=== PATIENT | male | born 1950 | race Hispanic/Latino ===

== ENCOUNTER 2020-07-25 15:03 | Inpatient (IN) | payer MEDICARE ==
[~2020-07-25] VITALS: Ht 170.2 cm; Wt 79.8 kg
[2020-07-25] MEDS ORDERED: ASPIRIN 81 MG CHEW TAB PO ONE (15:15)
[2020-07-25] MEDS ORDERED: HEPARIN SOD (PORCINE) 1000 UNIT/ML SDV ONE (15:45)
[2020-07-25 16:26] LABS: BASOPHILS # (AUTO) 0.1 (0.0-0.1); BASOPHILS % 0.5 % (0.0-1.0); EOSINOPHILS # (AUTO) 0.2 (0.0-0.4); EOSINOPHILS % 1.9 % (0.0-6.0); HEMOGLOBIN 10.1 g/dL (14.0-18.0); LYMPHOCYTES # (AUTO) 0.9 (1.0-3.2); LYMPHOCYTES % 9.6 % (18.0-39.1); MEAN CORPUSCULAR HEMOGLOBIN 31.3 pg (28-32); MEAN CORPUSCULAR HGB CONC 32.6 g/dL (31-35); MONOCYTES % 10.4 % (4.4-11.3); NEUTROPHILS # (AUTO) 7.3 (2.1-6.9); NEUTROPHILS % 76.9 % (38.7-80.0); PLATELET COUNT 192 x10e3/uL (140-360); RED BLOOD COUNT 3.23 x10e6/uL (4.3-5.7); RED CELL DISTRIBUTION WIDTH 13.2 % (11.7-14.4)
[2020-07-25 16:30] LABS: INR 0.9; PROTHROMBIN TIME 12.7 seconds (11.9-14.5)
[2020-07-25] MEDS ORDERED: CLONIDINE HCL 0.2 MG TAB PO ONE (16:30)
[2020-07-25 16:42] LABS: CREATINE KINASE MB 5.5 ng/mL (0-5.0)
[2020-07-25 16:55] LABS: ALBUMIN 2.4 g/dL (3.5-5.0); ALBUMIN/GLOBULIN RATIO 0.7 (0.8-2.0); ANION GAP 16.8 mmol/L (8-16); CREATININE, SERUM 7.27 mg/dL (0.72-1.25); POTASSIUM 3.8 mmol/L (3.5-5.1)
[2020-07-25 16:56] LABS: CALCIUM 6.8 mg/dL (8.4-10.2)
[2020-07-25] MEDS ORDERED: METOPROLOL SUCC50 MG PO (17:15)
[2020-07-25] MEDS ORDERED: LISINOPRIL40 MG PO (17:15)
[2020-07-25] MEDS ORDERED: AMLODIPINE BESY10 MG PO (17:15)
[2020-07-25] MEDS ORDERED: ATORVASTATIN CA80 MG PO (17:15)
[2020-07-25] MEDS ORDERED: FUROSEMIDE20 MG PO (17:15)
[2020-07-25 17:45] VITALS: BP 139/73
[2020-07-25 19:40] VITALS: BP 175/78
[2020-07-26] VITALS (8 sets, daily range): BP systolic 146–181; BP diastolic 62–82
[2020-07-26 05:47] LABS: BASOPHILS # (AUTO) 0.1 (0.0-0.1); BASOPHILS % 0.7 % (0.0-1.0); EOSINOPHILS # (AUTO) 0.2 (0.0-0.4); HEMATOCRIT 27.2 % (38.2-49.6); HEMOGLOBIN 8.7 g/dL (14.0-18.0); LYMPHOCYTES # (AUTO) 1.2 (1.0-3.2); LYMPHOCYTES % 13.6 % (18.0-39.1); MEAN CORPUSCULAR HEMOGLOBIN 31.3 pg (28-32); MEAN CORPUSCULAR VOLUME 97.8 fL (81-99); MONOCYTES % 11.8 % (4.4-11.3); NEUTROPHILS # (AUTO) 6.2 (2.1-6.9); NEUTROPHILS % 71.3 % (38.7-80.0); PLATELET COUNT 159 x10e3/uL (140-360); RED BLOOD COUNT 2.78 x10e6/uL (4.3-5.7); RED CELL DISTRIBUTION WIDTH 13.2 % (11.7-14.4)
[2020-07-26] MEDS: HYDRALAZINE HCL 20 MG/ML VIAL IV PRN (06:00)
[2020-07-26 06:13] LABS: ALBUMIN/GLOBULIN RATIO 0.7 (0.8-2.0); ANION GAP 15.1 mmol/L (8-16); CALCIUM 7.2 mg/dL (8.4-10.2); CREATININE, SERUM 7.49 mg/dL (0.72-1.25); POTASSIUM 4.1 mmol/L (3.5-5.1)
[2020-07-26 06:36] LABS: CREATINE KINASE MB 2.8 ng/mL (0-5.0)
[2020-07-26] MEDS ORDERED: ONDANSETRON HCL INJ 2MG/ML 2ML 2 MG/ML VIAL IV PRN (07:15)
[2020-07-26] MEDS ORDERED: ZOLPIDEM TARTRATE 5 MG TAB PO PRN (07:15)
[2020-07-26] MEDS ORDERED: DOCUSATE SODIUM 100 MG CAP PO PRN (07:15)
[2020-07-26 07:25] LABS: CHOL/HDL RATIO 4.3 (3.9-4.7)
[2020-07-26 07:45] LABS: THYROID STIMULATING HORMONE 2.423 uIU/mL (0.350-4.940)
[2020-07-26] MEDS: HEPARIN SOD (PORCINE) 5,000 UNIT/ML VIAL SC SCH ×3 (08:10→23:07)
[2020-07-26] MEDS ORDERED: SODIUM CHLORIDE 0.9% 1000ML 2,000 ML ONE (08:40)
[2020-07-26] MEDS ORDERED: SODIUM CHLORIDE 0.9% 250ML 500 ML IV PRN (11:30)
[2020-07-26] MEDS ORDERED: SODIUM CHLORIDE 0.9% 1000ML 2,000 ML IV PRN (11:30)
[2020-07-26] MEDS ORDERED: MANNITOL 25% 12.5GM/50 ML VIAL IV PRN (11:30)
[2020-07-26] MEDS ORDERED: HEPARIN SOD (PORCINE) 1000 UNIT/ML SDV IV PRN (11:30)
[2020-07-26] MEDS: ATORVASTATIN 40 MG TAB PO SCH (11:45)
[2020-07-26] MEDS: FAMOTIDINE 20 MG TAB PO SCH (11:45)
[2020-07-26] MEDS: METOPROLOL SUCCINATE 50 MG TAB XL PO SCH (11:45)
[2020-07-26] MEDS: AMLODIPINE BESYLATE 10 MG TAB PO SCH (11:45)
[2020-07-26 13:06] LABS: FERRITIN 230.54 ng/mL (21.81-274.66)
[2020-07-26] MEDS ORDERED: INSULIN ASPART 70/30 100 UNITS/ML VIAL SC ONE (23:15)
[2020-07-27] VITALS (7 sets, daily range): BP systolic 158–185; BP diastolic 72–80
[2020-07-27] MEDS: ACETAMINOPHEN 325 MG TAB PO PRN (02:51)
[2020-07-27] MEDS: HEPARIN SOD (PORCINE) 5,000 UNIT/ML VIAL SC SCH ×3 (06:38→22:39)
[2020-07-27] MEDS: INSULIN ASPART 70/30 100 UNITS/ML VIAL SC SCH ×2 (08:13→17:04)
[2020-07-27] MEDS: ATORVASTATIN 40 MG TAB PO SCH (09:12)
[2020-07-27] MEDS: ASPIRIN 81 MG ENTERIC COATED PO SCH (09:12)
[2020-07-27] MEDS: AMLODIPINE BESYLATE 10 MG TAB PO SCH (09:13)
[2020-07-27] MEDS: METOPROLOL SUCCINATE 50 MG TAB XL PO SCH (09:13)
[2020-07-27] MEDS: FAMOTIDINE 20 MG TAB PO SCH (09:13)
[2020-07-27] MEDS ORDERED: NIFEDIPINE CR 30 MG TAB PO SCH (10:00)
[2020-07-27] MEDS: IRON SUCROSE 200 MG in SODIUM CHLORIDE 0.9% 100 ML 100 ML IV SCH (13:13)
[2020-07-28] VITALS (11 sets, daily range): BP systolic 165–198; BP diastolic 75–94
[2020-07-28] MEDS: HEPARIN SOD (PORCINE) 5,000 UNIT/ML VIAL SC SCH ×3 (07:00→21:24)
[2020-07-28] MEDS: INSULIN ASPART 70/30 100 UNITS/ML VIAL SC SCH ×2 (08:00→17:15)
[2020-07-28] MEDS: ASPIRIN 81 MG ENTERIC COATED PO SCH (09:00)
[2020-07-28] MEDS: METOPROLOL SUCCINATE 50 MG TAB XL PO SCH ×2 (09:00→12:18)
[2020-07-28] MEDS: LISINOPRIL 20 MG TAB PO SCH ×2 (09:00→12:18)
[2020-07-28] MEDS: ATORVASTATIN 40 MG TAB PO SCH (09:12)
[2020-07-28] MEDS: FAMOTIDINE 20 MG TAB PO SCH (09:13)
[2020-07-28] MEDS ORDERED: ALBUMIN 25% 12.5GM 0.25 GM/ML BTL IV PRN (11:15)
[2020-07-28] MEDS ORDERED: ONDANSETRON HCL 4 MG ORAL DISINTEGRATING TAB PO PRN (12:30)
[2020-07-28] MEDS ORDERED: AMLODIPINE BESYLATE 5 MG TAB PO ONE (12:45)
[2020-07-28 12:52] LABS: ANION GAP 12.9 mmol/L (8-16); CREATININE, SERUM 7.06 mg/dL (0.72-1.25); POTASSIUM 3.9 mmol/L (3.5-5.1)
[2020-07-28 12:58] LABS: CALCIUM 6.9 mg/dL (8.4-10.2)
[2020-07-28] MEDS ORDERED: LIDOCAINE HCL 1% LOCAL INJ 20 ML VIAL ONE (14:34)
[2020-07-28] MEDS ORDERED: SODIUM CHLORIDE 0.9% 250ML 250 ML ONE (14:34)
[2020-07-28] MEDS ORDERED: MIDAZOLAM HCL 2 MG/2 ML VIAL ONE (14:35)
[2020-07-28] MEDS ORDERED: FENTANYL CITRATE/PF 100MCG/2 ML INJ ONE (14:35)
[2020-07-28] MEDS ORDERED: CEFAZOLIN SOD 1 GM/NS 50ML 50 ML IV ONE (14:35)
[2020-07-28] MEDS ORDERED: HEPARIN SOD (PORCINE) 1000 UNIT/ML SDV ONE (15:20)
[2020-07-28] MEDS: CALCIUM CARBONATE 500 MG CHEWABLE TABS PO SCH ×2 (17:15→21:17)
[2020-07-28] MEDS: IRON SUCROSE 200 MG in SODIUM CHLORIDE 0.9% 100 ML 100 ML IV SCH (17:30)
[2020-07-28] MEDS: HYDRALAZINE HCL 20 MG/ML VIAL IV PRN ×2 (17:35→23:49)
[2020-07-28] MEDS: ACETAMINOPHEN 325 MG TAB PO PRN (20:02)
[2020-07-28] MEDS ORDERED: CALCIUM GLUCONATE 10% INJ 9.3 MEQ in SODIUM CHLORIDE 0.9% 100 ML 100 ML IV ONE (21:30)
[2020-07-28] MEDS ORDERED: CALCIUM GLUCONATE 10% INJ 0.465 MEQ/ML VIAL ONE (21:59)
[2020-07-28] MEDS ORDERED: SODIUM CHLORIDE 0.9% 100 ML ONE (21:59)
[2020-07-29] MEDS: HYDRALAZINE HCL 20 MG/ML VIAL IV PRN (04:44)
[2020-07-29 05:03] VITALS: BP 176/84
[2020-07-29] MEDS: HEPARIN SOD (PORCINE) 5,000 UNIT/ML VIAL SC SCH (06:03)
[2020-07-29 06:23] LABS: BASOPHILS # (AUTO) 0.1 (0.0-0.1); BASOPHILS % 0.5 % (0.0-1.0); EOSINOPHILS # (AUTO) 0.1 (0.0-0.4); EOSINOPHILS % 1.1 % (0.0-6.0); HEMATOCRIT 29.6 % (38.2-49.6); HEMOGLOBIN 9.6 g/dL (14.0-18.0); LYMPHOCYTES # (AUTO) 1.5 (1.0-3.2); LYMPHOCYTES % 11.8 % (18.0-39.1); MEAN CORPUSCULAR HEMOGLOBIN 31.2 pg (28-32); MEAN CORPUSCULAR HGB CONC 32.4 g/dL (31-35); MEAN CORPUSCULAR VOLUME 96.1 fL (81-99); MONOCYTES # (AUTO) 1.5 (0.2-0.8); NEUTROPHILS # (AUTO) 9.4 (2.1-6.9); NEUTROPHILS % 73.8 % (38.7-80.0); PLATELET COUNT 200 x10e3/uL (140-360); RED BLOOD COUNT 3.08 x10e6/uL (4.3-5.7); RED CELL DISTRIBUTION WIDTH 13.4 % (11.7-14.4)
[2020-07-29 06:58] LABS: ANION GAP 15.1 mmol/L (8-16); CALCIUM 7.8 mg/dL (8.4-10.2); CREATININE, SERUM 5.32 mg/dL (0.72-1.25); POTASSIUM 4.1 mmol/L (3.5-5.1)
[2020-07-29 07:34] VITALS: BP 168/72
[2020-07-29 07:37] VITALS: BP 168/72
[2020-07-29] MEDS: INSULIN ASPART 70/30 100 UNITS/ML VIAL SC SCH (08:00)
[2020-07-29] MEDS: METOPROLOL SUCCINATE 50 MG TAB XL PO SCH ×2 (09:00→11:54)
[2020-07-29] MEDS: LISINOPRIL 20 MG TAB PO SCH ×2 (09:00→11:53)
[2020-07-29] MEDS: CALCIUM CARBONATE 500 MG CHEWABLE TABS PO SCH ×2 (09:00→11:54)
[2020-07-29] MEDS: ATORVASTATIN 40 MG TAB PO SCH ×2 (09:00→11:53)
[2020-07-29] MEDS: ASPIRIN 81 MG ENTERIC COATED PO SCH ×2 (09:00→11:53)
[2020-07-29] MEDS: FAMOTIDINE 20 MG TAB PO SCH ×2 (09:00→11:53)
[2020-07-29 11:32] VITALS: BP 120/68
[2020-07-29] MEDS: IRON SUCROSE 200 MG in SODIUM CHLORIDE 0.9% 100 ML 100 ML IV SCH (11:56)
[2020-07-29] MEDS ORDERED: HEPARIN SOD (PORCINE) 1000 UNIT/ML SDV IV PRN (12:15)
== END 2020-07-29 13:41 | disposition home or self-care (01) | DRG 673 ==
LOC: ER 15:13 → ERHOLD 16:49 → MED/SURG 17:32
PROVIDERS: ADMIT Internal Medicine; ATTEND Internal Medicine
PROC: 02HV33Z Insertion of Infusion Device into Superior Vena Cava, Percutaneous Approach (ICD-10-PCS; principal; 2020-07-25)
PROC: 5A1D70Z Performance of Urinary Filtration, Intermittent, Less than 6 Hours Per Day (ICD-10-PCS; 2020-07-26)
PROC: 0JH63XZ Insertion of Tunneled Vascular Access Device into Chest Subcutaneous Tissue and Fascia, Percutaneous Approach (ICD-10-PCS; 2020-07-28)
PROC: 02HV33Z Insertion of Infusion Device into Superior Vena Cava, Percutaneous Approach (ICD-10-PCS; 2020-07-28)
DX: I12.0 Hypertensive chronic kidney disease with stage 5 chronic kidney disease or end stage renal disease (principal); N18.6 End stage renal disease; E11.22 Type 2 diabetes mellitus with diabetic chronic kidney disease; E11.649 Type 2 diabetes mellitus with hypoglycemia without coma; T38.3X5A Adverse effect of insulin and oral hypoglycemic [antidiabetic] drugs, initial encounter; Z79.899 Other long term (current) drug therapy; E78.5 Hyperlipidemia, unspecified; D64.9 Anemia, unspecified; R77.8 Other specified abnormalities of plasma proteins; Z99.2 Dependence on renal dialysis; N25.0 Renal osteodystrophy; D63.1 Anemia in chronic kidney disease; E11.51 Type 2 diabetes mellitus with diabetic peripheral angiopathy without gangrene; Z87.891 Personal history of nicotine dependence; Z20.822 Contact with and (suspected) exposure to COVID-19
CPT/HCPCS: 36415; 36556; 36558; 71045; 74470; 76937; 77001; 80048; 80053; 80061; 82306; 82550; 82553; 82728; 82948; 83036; 83540; 83970; 84443; 84466; 84484; 85025; 85610; 86705; 86706; 87340; 90962; 93005; 93306; 99284; C1752; C1769; J0360; J0610; J0690; J1644; J1756; J1815; J2001; J2250; J3010; J7030; J7050; U0002